=== PATIENT | male | born 1965 | race African-American/Black ===

== ENCOUNTER 2021-06-25 01:04 | Inpatient (IN) | payer OTHER ==
[2021-06-25 01:12] VITALS: BMI 26.9
[2021-06-25] MEDS ORDERED: ONDANSETRON *ODT* 4 MG TABLET SL PRN (01:26)
[2021-06-25] MEDS ORDERED: BISMUTH SUBSALICYLATE 524 MG/30 ML PO PRN (01:26)
[2021-06-25] MEDS ORDERED: IBUPROFEN 400 MG TABLET (FP) PO PRN (01:26)
[2021-06-25] MEDS ORDERED: ACETAMINOPHEN 325 MG TABLET (FP) PO PRN ×2 (01:26)
[2021-06-25] MEDS ORDERED: NICOTINE 10 MG CARTRIDGE (INHALER) IH PRN (01:26)
[2021-06-25] MEDS ORDERED: DICYCLOMINE HCL 10 MG CAPSULE PO PRN (01:26)
[2021-06-25] MEDS ORDERED: MAGNESIUM CITRATE 300 ML BOTTLE PO PRN (01:26)
[2021-06-25] MEDS ORDERED: LOPERAMIDE HCL 2 MG CAPSULE PO PRN (01:26)
[2021-06-25] MEDS ORDERED: BENZOCAINE/MENTHOL (CHLORASEPTIC ) LOZENGE MM PRN (01:26)
[2021-06-25] MEDS ORDERED: MAG HYDROX/AL HYDROX/SIMETH 30 ML UNIT-DOSE CUP PO PRN (01:26)
[2021-06-25] MEDS ORDERED: ALBUTEROL SO4 HFA INHALER IH PRN (03:19)
[2021-06-25] MEDS: hydrOXYzine PAMOATE 25 MG CAPSULE (FP) PO SCH ×5 (07:07→22:38)
[2021-06-25] MEDS ORDERED: diazePAM 5 MG TABLET PO PRN (09:55)
[2021-06-25] MEDS: METHOCARBAMOL 500 MG TABLET PO PRN (10:50)
[2021-06-25] MEDS: BACITRACIN 0.9 GM PACKET TP SCH (10:50)
[2021-06-25] MEDS: PRENATAL VITAMINS W/ FOLIC ACID TABLET (FP) PO SCH (10:50)
[2021-06-25] MEDS: diazePAM 5 MG TABLET PO SCH ×3 (10:50→22:39)
[2021-06-25] MEDS ORDERED: methaDONE HCL 10 MG TABLET PO ONE (12:22)
[2021-06-25] MEDS ORDERED: methaDONE HCL 10 MG TABLET ONE (13:49)
[2021-06-25] MEDS ORDERED: methaDONE HCL 40 MG DISPERSABLE TABLET ONE (13:49)
[2021-06-25] MEDS ORDERED: methaDONE 40 MG, methaDONE 10 MG PO ONE (14:00)
[2021-06-25 14:18] LABS: HEMATOCRIT 41.3 % (35.4-49); HEMOGLOBIN 13.9 GM/dL (11.7-16.9); MCH 28.2 pg (25.7-33.7); MCHC 33.8 g/dl (32.0-35.9); MEAN CELL VOLUME 83.4 fl (80-96); MEAN PLT VOLUME 8.3 fl (7.5-11.1); PLATELET COUNT 230 10^3/uL (134-434); RBC 4.95 M/mm3 (4.00-5.60); RDW 15.2 % (11.9-15.9); WHITE BLOOD COUNT 3.7 K/mm3 (4.0-10.0)
[2021-06-25 14:48] LABS: ALBUMIN 3.5 g/dl (3.4-5.0); CALCIUM 9.3 mg/dL (8.5-10.1)
[2021-06-25 14:49] LABS: BLOOD UREA NITROGEN 10.9 mg/dL (7-18)
[2021-06-25 14:51] LABS: CREATININE 0.9 mg/dL (0.55-1.3)
[2021-06-25 14:53] LABS: BILIRUBIN,TOTAL 0.7 mg/dL (0.2-1); TOT PROT 7.7 g/dl (6.4-8.2)
[2021-06-25 15:12] LABS: HIV INTERPRETATION NEGATIVE (NEGATIVE)
[2021-06-25] MEDS: MAGNESIUM HYDROX 2400MG/30ML ORAL SUSPENSION 30 ML CUP PO PRN (18:20)
[2021-06-25] MEDS: MELATONIN 5 MG TABLETS PO SCH (22:36)
[2021-06-25] MEDS: THIAMINE HCL 100 MG TABLET (FP) PO SCH (22:38)
[2021-06-26] MEDS ORDERED: diazePAM 5 MG TABLET PO PRN (00:01)
[2021-06-26] MEDS ORDERED: methaDONE HCL 40 MG DISPERSABLE TABLET ONE (04:08)
[2021-06-26] MEDS ORDERED: methaDONE HCL 10 MG TABLET ONE (04:08)
[2021-06-26] MEDS ORDERED: methaDONE HCL 10 MG TABLET PO SCH (06:00)
[2021-06-26 06:07] LABS: SARS-CoV-2 NAA Not Detected (Not Detected)
[2021-06-26] MEDS: diazePAM 5 MG TABLET PO SCH ×3 (06:41→22:36)
[2021-06-26] MEDS: methaDONE 40 MG, methaDONE 10 MG PO SCH (06:41)
[2021-06-26] MEDS: hydrOXYzine PAMOATE 25 MG CAPSULE (FP) PO SCH ×5 (06:42→22:36)
[2021-06-26] MEDS ORDERED: DOCUSATE SODIUM 100 MG CAPSULE (FP) PO ONE (10:20)
[2021-06-26] MEDS: METHOCARBAMOL 500 MG TABLET PO PRN (10:56)
[2021-06-26] MEDS: BACITRACIN 0.9 GM PACKET TP SCH (10:56)
[2021-06-26] MEDS: PRENATAL VITAMINS W/ FOLIC ACID TABLET (FP) PO SCH (10:56)
[2021-06-26] MEDS: DOCUSATE SODIUM 100 MG CAPSULE (FP) PO SCH ×2 (13:15→22:36)
[2021-06-26] MEDS: SENNOSIDES 8.6MG TABLET (FP) PO SCH (22:36)
[2021-06-26] MEDS: THIAMINE HCL 100 MG TABLET (FP) PO SCH (22:37)
[2021-06-26] MEDS: MELATONIN 5 MG TABLETS PO SCH (22:37)
[2021-06-27] MEDS ORDERED: methaDONE HCL 40 MG DISPERSABLE TABLET ONE (04:24)
[2021-06-27] MEDS ORDERED: methaDONE HCL 10 MG TABLET ONE (04:24)
[2021-06-27] MEDS: DOCUSATE SODIUM 100 MG CAPSULE (FP) PO SCH ×3 (05:53→22:32)
[2021-06-27] MEDS: hydrOXYzine PAMOATE 25 MG CAPSULE (FP) PO SCH ×5 (05:53→22:32)
[2021-06-27] MEDS: diazePAM 5 MG TABLET PO SCH ×2 (05:53→17:53)
[2021-06-27] MEDS: methaDONE 40 MG, methaDONE 10 MG PO SCH (05:53)
[2021-06-27] MEDS: MAGNESIUM HYDROX 2400MG/30ML ORAL SUSPENSION 30 ML CUP PO PRN (08:34)
[2021-06-27] MEDS: BACITRACIN 0.9 GM PACKET TP SCH (11:15)
[2021-06-27] MEDS: PRENATAL VITAMINS W/ FOLIC ACID TABLET (FP) PO SCH (11:15)
[2021-06-27] MEDS: SENNOSIDES 8.6MG TABLET (FP) PO SCH (22:31)
[2021-06-27] MEDS: THIAMINE HCL 100 MG TABLET (FP) PO SCH (22:32)
[2021-06-27] MEDS: MELATONIN 5 MG TABLETS PO SCH (22:32)
[2021-06-28] MEDS ORDERED: methaDONE HCL 40 MG DISPERSABLE TABLET ONE (03:54)
[2021-06-28] MEDS ORDERED: methaDONE HCL 10 MG TABLET ONE (03:54)
[2021-06-28] MEDS ORDERED: diazePAM 5 MG TABLET PO ONE (06:00)
[2021-06-28] MEDS: DOCUSATE SODIUM 100 MG CAPSULE (FP) PO SCH (06:36)
[2021-06-28] MEDS: hydrOXYzine PAMOATE 25 MG CAPSULE (FP) PO SCH ×2 (06:36→10:32)
[2021-06-28] MEDS: methaDONE 40 MG, methaDONE 10 MG PO SCH (06:36)
[2021-06-28] MEDS: PRENATAL VITAMINS W/ FOLIC ACID TABLET (FP) PO SCH (10:32)
[2021-06-28] MEDS: METHOCARBAMOL 500 MG TABLET PO PRN (10:32)
[2021-06-28] MEDS: BACITRACIN 0.9 GM PACKET TP SCH (10:32)
[2021-06-28 13:24] VITALS: BP 122/78; PULSE 72; TEMP 98.3
== END 2021-06-28 13:51 | disposition other institution (70) | DRG 773 ==
LOC: YASAS 01:04 → Y6N 02:01
PROVIDERS: ADMIT Allergy & Immunology; ATTEND Allergy & Immunology
PROC: HZ2ZZZZ Detoxification Services for Substance Abuse Treatment (ICD-10-PCS; principal; 2021-06-25)
DX: F13.230 Sedative, hypnotic or anxiolytic dependence with withdrawal, uncomplicated (principal); F11.20 Opioid dependence, uncomplicated; F17.210 Nicotine dependence, cigarettes, uncomplicated; F19.282 Other psychoactive substance dependence with psychoactive substance-induced sleep disorder; F19.24 Other psychoactive substance dependence with psychoactive substance-induced mood disorder; E11.9 Type 2 diabetes mellitus without complications; J45.909 Unspecified asthma, uncomplicated; K59.03 Drug induced constipation; L97.321 Non-pressure chronic ulcer of left ankle limited to breakdown of skin; Z88.0 Allergy status to penicillin; Z59.00 Homelessness unspecified
CPT/HCPCS: 36415; 73610-TC-LT-FY; 73630-TC-LT; 80053; 85025; 85027; 86780; 87389; 99283-25; C9803-CS; U0003; U0005

== ENCOUNTER 2021-06-28 14:08 | Inpatient (IN) | payer OTHER ==
[2021-06-28] MEDS ORDERED: MAGNESIUM CITRATE 300 ML BOTTLE PO PRN (15:16)
[2021-06-28] MEDS ORDERED: guaiFENesin 200 MG/10 ML 10 ML UNIT-DOSE CUPS PO PRN (15:16)
[2021-06-28] MEDS ORDERED: ACETAMINOPHEN 325 MG TABLET (FP) PO PRN (15:16)
[2021-06-28] MEDS ORDERED: MAGNESIUM HYDROX 2400MG/30ML ORAL SUSPENSION 30 ML CUP PO PRN (15:16)
[2021-06-28] MEDS ORDERED: LOPERAMIDE HCL 2 MG CAPSULE PO PRN (15:16)
[2021-06-28] MEDS ORDERED: P-EPHED 60MG/TRIPROLIDI 2.5MG TABLET PO PRN (15:16)
[2021-06-28] MEDS ORDERED: IBUPROFEN 400 MG TABLET (FP) PO PRN (15:16)
[2021-06-28] MEDS ORDERED: BENZOCAINE/MENTHOL (CHLORASEPTIC ) LOZENGE MM PRN (15:16)
[2021-06-28] MEDS ORDERED: MAG HYDROX/AL HYDROX/SIMETH 30 ML UNIT-DOSE CUP PO PRN (15:16)
[2021-06-28] MEDS ORDERED: ALBUTEROL SO4 HFA INHALER IH PRN (15:17)
[2021-06-28] MEDS: hydrOXYzine PAMOATE 25 MG CAPSULE (FP) PO SCH ×2 (20:45→21:11)
[2021-06-28] MEDS: MELATONIN 5 MG TABLETS PO SCH (21:11)
[2021-06-28] MEDS: THIAMINE HCL 100 MG TABLET (FP) PO SCH (21:11)
[2021-06-29] MEDS ORDERED: methaDONE HCL 10 MG TABLET ONE (04:08)
[2021-06-29] MEDS ORDERED: methaDONE HCL 40 MG DISPERSABLE TABLET ONE (04:08)
[2021-06-29] MEDS ORDERED: methaDONE HCL 10 MG TABLET PO SCH (06:00)
[2021-06-29] MEDS: methaDONE 40 MG, methaDONE 10 MG PO SCH (06:40)
[2021-06-29] MEDS: hydrOXYzine PAMOATE 25 MG CAPSULE (FP) PO SCH ×5 (06:41→21:24)
[2021-06-29] MEDS: PRENATAL VITAMINS W/ FOLIC ACID TABLET (FP) PO SCH (10:36)
[2021-06-29] MEDS: THIAMINE HCL 100 MG TABLET (FP) PO SCH (21:24)
[2021-06-29] MEDS: MELATONIN 5 MG TABLETS PO SCH (21:24)
[2021-06-30] MEDS ORDERED: methaDONE HCL 40 MG DISPERSABLE TABLET ONE (05:27)
[2021-06-30] MEDS ORDERED: methaDONE HCL 10 MG TABLET ONE (05:27)
[2021-06-30] MEDS: hydrOXYzine PAMOATE 25 MG CAPSULE (FP) PO SCH ×5 (06:45→21:14)
[2021-06-30] MEDS: methaDONE 40 MG, methaDONE 10 MG PO SCH (06:45)
[2021-06-30] MEDS: PRENATAL VITAMINS W/ FOLIC ACID TABLET (FP) PO SCH (10:38)
[2021-06-30] MEDS: THIAMINE HCL 100 MG TABLET (FP) PO SCH (21:14)
[2021-06-30] MEDS: MELATONIN 5 MG TABLETS PO SCH (21:14)
[2021-07-01] MEDS ORDERED: methaDONE HCL 10 MG TABLET ONE (04:13)
[2021-07-01] MEDS ORDERED: methaDONE HCL 40 MG DISPERSABLE TABLET ONE (04:14)
[2021-07-01] MEDS: methaDONE 40 MG, methaDONE 10 MG PO SCH (06:21)
[2021-07-01] MEDS: hydrOXYzine PAMOATE 25 MG CAPSULE (FP) PO SCH ×5 (06:21→21:23)
[2021-07-01] MEDS: PRENATAL VITAMINS W/ FOLIC ACID TABLET (FP) PO SCH (10:10)
[2021-07-01] MEDS: MUPIROCIN 2% TOPICAL OINTMENT 22 GM TUBE TP SCH ×2 (12:11→21:24)
[2021-07-01] MEDS: SULFAMETHOXAZOLE/TRIMETHOPRIM 800MG/160MG D.S. TABLET PO SCH ×2 (12:11→21:23)
[2021-07-01] MEDS: METHOCARBAMOL 500 MG TABLET PO SCH ×3 (14:40→21:23)
[2021-07-01] MEDS: MELATONIN 5 MG TABLETS PO SCH (21:23)
[2021-07-01] MEDS: THIAMINE HCL 100 MG TABLET (FP) PO SCH (21:23)
[2021-07-02] MEDS ORDERED: methaDONE HCL 40 MG DISPERSABLE TABLET ONE (04:32)
[2021-07-02] MEDS ORDERED: methaDONE HCL 10 MG TABLET ONE (04:32)
[2021-07-02] MEDS: hydrOXYzine PAMOATE 25 MG CAPSULE (FP) PO SCH ×5 (06:14→21:34)
[2021-07-02] MEDS: methaDONE 40 MG, methaDONE 10 MG PO SCH (06:14)
[2021-07-02 10:09] LABS: SARS-CoV-2 NAA Not Detected (Not Detected)
[2021-07-02] MEDS: SULFAMETHOXAZOLE/TRIMETHOPRIM 800MG/160MG D.S. TABLET PO SCH ×2 (10:28→21:35)
[2021-07-02] MEDS: MUPIROCIN 2% TOPICAL OINTMENT 22 GM TUBE TP SCH ×2 (10:28→21:35)
[2021-07-02] MEDS: METHOCARBAMOL 500 MG TABLET PO SCH ×4 (10:29→21:34)
[2021-07-02] MEDS: PRENATAL VITAMINS W/ FOLIC ACID TABLET (FP) PO SCH (10:29)
[2021-07-02] MEDS: MELATONIN 5 MG TABLETS PO SCH (21:34)
[2021-07-02] MEDS: THIAMINE HCL 100 MG TABLET (FP) PO SCH (21:34)
[2021-07-03] MEDS ORDERED: methaDONE HCL 10 MG TABLET ONE (04:11)
[2021-07-03] MEDS ORDERED: methaDONE HCL 40 MG DISPERSABLE TABLET ONE (04:11)
[2021-07-03] MEDS: methaDONE 40 MG, methaDONE 10 MG PO SCH (06:21)
[2021-07-03] MEDS: hydrOXYzine PAMOATE 25 MG CAPSULE (FP) PO SCH ×5 (06:22→21:15)
[2021-07-03] MEDS: PRENATAL VITAMINS W/ FOLIC ACID TABLET (FP) PO SCH (10:17)
[2021-07-03] MEDS: SULFAMETHOXAZOLE/TRIMETHOPRIM 800MG/160MG D.S. TABLET PO SCH ×2 (10:17→21:15)
[2021-07-03] MEDS: METHOCARBAMOL 500 MG TABLET PO SCH ×4 (10:17→21:15)
[2021-07-03] MEDS: MUPIROCIN 2% TOPICAL OINTMENT 22 GM TUBE TP SCH ×2 (10:17→21:16)
[2021-07-03] MEDS: THIAMINE HCL 100 MG TABLET (FP) PO SCH (21:15)
[2021-07-03] MEDS: MELATONIN 5 MG TABLETS PO SCH (21:15)
[2021-07-04] MEDS ORDERED: methaDONE HCL 40 MG DISPERSABLE TABLET ONE (02:48)
[2021-07-04] MEDS ORDERED: methaDONE HCL 10 MG TABLET ONE (02:48)
[2021-07-04] MEDS: methaDONE 40 MG, methaDONE 10 MG PO SCH (06:14)
[2021-07-04] MEDS: hydrOXYzine PAMOATE 25 MG CAPSULE (FP) PO SCH ×5 (06:16→23:03)
[2021-07-04] MEDS: MUPIROCIN 2% TOPICAL OINTMENT 22 GM TUBE TP SCH ×2 (09:52→21:29)
[2021-07-04] MEDS: SULFAMETHOXAZOLE/TRIMETHOPRIM 800MG/160MG D.S. TABLET PO SCH ×2 (09:52→21:28)
[2021-07-04] MEDS: METHOCARBAMOL 500 MG TABLET PO SCH ×4 (09:52→21:28)
[2021-07-04] MEDS: PRENATAL VITAMINS W/ FOLIC ACID TABLET (FP) PO SCH (09:52)
[2021-07-04] MEDS: MELATONIN 5 MG TABLETS PO SCH (21:28)
[2021-07-04] MEDS: THIAMINE HCL 100 MG TABLET (FP) PO SCH (21:28)
[2021-07-04] MEDS: DOCUSATE SODIUM 100 MG CAPSULE (FP) PO SCH (21:29)
[2021-07-05] MEDS ORDERED: methaDONE HCL 40 MG DISPERSABLE TABLET ONE (05:26)
[2021-07-05] MEDS ORDERED: methaDONE HCL 10 MG TABLET ONE (05:26)
[2021-07-05] MEDS: methaDONE 40 MG, methaDONE 10 MG PO SCH (06:35)
[2021-07-05] MEDS: hydrOXYzine PAMOATE 25 MG CAPSULE (FP) PO SCH ×2 (06:36→10:03)
[2021-07-05] MEDS: MUPIROCIN 2% TOPICAL OINTMENT 22 GM TUBE TP SCH ×2 (10:02→21:42)
[2021-07-05] MEDS: SULFAMETHOXAZOLE/TRIMETHOPRIM 800MG/160MG D.S. TABLET PO SCH ×2 (10:03→21:41)
[2021-07-05] MEDS: PRENATAL VITAMINS W/ FOLIC ACID TABLET (FP) PO SCH (10:03)
[2021-07-05] MEDS: METHOCARBAMOL 500 MG TABLET PO SCH ×4 (10:03→22:20)
[2021-07-05] MEDS ORDERED: hydrOXYzine PAMOATE 25 MG CAPSULE (FP) PO PRN (12:39)
[2021-07-05] MEDS: MELATONIN 5 MG TABLETS PO SCH (21:40)
[2021-07-05] MEDS: THIAMINE HCL 100 MG TABLET (FP) PO SCH (21:40)
[2021-07-05] MEDS: DOCUSATE SODIUM 100 MG CAPSULE (FP) PO SCH (21:41)
[2021-07-06] MEDS ORDERED: methaDONE HCL 40 MG DISPERSABLE TABLET ONE (04:04)
[2021-07-06] MEDS ORDERED: methaDONE HCL 10 MG TABLET ONE (04:04)
[2021-07-06] MEDS: methaDONE 40 MG, methaDONE 10 MG PO SCH (05:58)
[2021-07-06] MEDS: PRENATAL VITAMINS W/ FOLIC ACID TABLET (FP) PO SCH (10:23)
[2021-07-06] MEDS: MUPIROCIN 2% TOPICAL OINTMENT 22 GM TUBE TP SCH ×2 (10:23→21:16)
[2021-07-06] MEDS: METHOCARBAMOL 500 MG TABLET PO SCH ×4 (10:23→21:15)
[2021-07-06] MEDS: SULFAMETHOXAZOLE/TRIMETHOPRIM 800MG/160MG D.S. TABLET PO SCH ×2 (10:23→21:15)
[2021-07-06] MEDS: DOCUSATE SODIUM 100 MG CAPSULE (FP) PO SCH (21:15)
[2021-07-06] MEDS: MELATONIN 5 MG TABLETS PO SCH (21:16)
[2021-07-06] MEDS: THIAMINE HCL 100 MG TABLET (FP) PO SCH (21:16)
[2021-07-07] MEDS ORDERED: methaDONE HCL 10 MG TABLET ONE (02:12)
[2021-07-07] MEDS ORDERED: methaDONE HCL 40 MG DISPERSABLE TABLET ONE (02:12)
[2021-07-07] MEDS: methaDONE 40 MG, methaDONE 10 MG PO SCH (06:27)
[2021-07-07] MEDS: METHOCARBAMOL 500 MG TABLET PO SCH ×4 (10:17→21:27)
[2021-07-07] MEDS: MUPIROCIN 2% TOPICAL OINTMENT 22 GM TUBE TP SCH ×2 (10:17→21:28)
[2021-07-07] MEDS: SULFAMETHOXAZOLE/TRIMETHOPRIM 800MG/160MG D.S. TABLET PO SCH ×2 (10:17→21:27)
[2021-07-07] MEDS: PRENATAL VITAMINS W/ FOLIC ACID TABLET (FP) PO SCH (10:17)
[2021-07-07] MEDS: THIAMINE HCL 100 MG TABLET (FP) PO SCH (21:27)
[2021-07-07] MEDS: MELATONIN 5 MG TABLETS PO SCH (21:27)
[2021-07-07] MEDS: DOCUSATE SODIUM 100 MG CAPSULE (FP) PO SCH (21:27)
[2021-07-08] MEDS ORDERED: methaDONE HCL 40 MG DISPERSABLE TABLET ONE (02:10)
[2021-07-08] MEDS ORDERED: methaDONE HCL 10 MG TABLET ONE (02:10)
[2021-07-08] MEDS: methaDONE 40 MG, methaDONE 10 MG PO SCH (06:08)
[2021-07-08] MEDS: PRENATAL VITAMINS W/ FOLIC ACID TABLET (FP) PO SCH (10:23)
[2021-07-08] MEDS: SULFAMETHOXAZOLE/TRIMETHOPRIM 800MG/160MG D.S. TABLET PO SCH (10:23)
[2021-07-08] MEDS: METHOCARBAMOL 500 MG TABLET PO SCH ×4 (10:23→21:15)
[2021-07-08] MEDS: MUPIROCIN 2% TOPICAL OINTMENT 22 GM TUBE TP SCH ×2 (13:14→21:15)
[2021-07-08] MEDS: DOCUSATE SODIUM 100 MG CAPSULE (FP) PO SCH (21:14)
[2021-07-08] MEDS: MELATONIN 5 MG TABLETS PO SCH (21:15)
[2021-07-08] MEDS: THIAMINE HCL 100 MG TABLET (FP) PO SCH (21:15)
[2021-07-09] MEDS ORDERED: methaDONE HCL 10 MG TABLET ONE (04:52)
[2021-07-09] MEDS ORDERED: methaDONE HCL 40 MG DISPERSABLE TABLET ONE (04:52)
[2021-07-09] MEDS: methaDONE 40 MG, methaDONE 10 MG PO SCH (06:16)
[2021-07-09] MEDS: PRENATAL VITAMINS W/ FOLIC ACID TABLET (FP) PO SCH (09:50)
[2021-07-09] MEDS: MUPIROCIN 2% TOPICAL OINTMENT 22 GM TUBE TP SCH ×2 (09:50→21:22)
[2021-07-09] MEDS: METHOCARBAMOL 500 MG TABLET PO SCH ×4 (09:50→21:21)
[2021-07-09] MEDS: SULFAMETHOXAZOLE/TRIMETHOPRIM 800MG/160MG D.S. TABLET PO SCH ×2 (10:33→21:21)
[2021-07-09] MEDS: BACITRACIN 0.9 GM PACKET TP SCH ×2 (10:33→21:21)
[2021-07-09] MEDS: THIAMINE HCL 100 MG TABLET (FP) PO SCH (21:21)
[2021-07-09] MEDS: DOCUSATE SODIUM 100 MG CAPSULE (FP) PO SCH (21:21)
[2021-07-09] MEDS: MELATONIN 5 MG TABLETS PO SCH (21:21)
[2021-07-10] MEDS ORDERED: methaDONE HCL 10 MG TABLET ONE (02:43)
[2021-07-10] MEDS ORDERED: methaDONE HCL 40 MG DISPERSABLE TABLET ONE (02:43)
[2021-07-10] MEDS: methaDONE 40 MG, methaDONE 10 MG PO SCH (06:00)
[2021-07-10] MEDS: BACITRACIN 0.9 GM PACKET TP SCH ×2 (11:16→21:10)
[2021-07-10] MEDS: METHOCARBAMOL 500 MG TABLET PO SCH ×4 (11:17→21:10)
[2021-07-10] MEDS: PRENATAL VITAMINS W/ FOLIC ACID TABLET (FP) PO SCH (11:17)
[2021-07-10] MEDS: SULFAMETHOXAZOLE/TRIMETHOPRIM 800MG/160MG D.S. TABLET PO SCH ×2 (11:17→21:10)
[2021-07-10] MEDS: MUPIROCIN 2% TOPICAL OINTMENT 22 GM TUBE TP SCH ×2 (11:17→21:11)
[2021-07-10] MEDS: DOCUSATE SODIUM 100 MG CAPSULE (FP) PO SCH (21:10)
[2021-07-10] MEDS: THIAMINE HCL 100 MG TABLET (FP) PO SCH (21:10)
[2021-07-10] MEDS: MELATONIN 5 MG TABLETS PO SCH (21:10)
[2021-07-11] MEDS ORDERED: methaDONE HCL 10 MG TABLET ONE (06:00)
[2021-07-11] MEDS ORDERED: methaDONE HCL 40 MG DISPERSABLE TABLET ONE (06:00)
[2021-07-11] MEDS: methaDONE 40 MG, methaDONE 10 MG PO SCH (06:42)
[2021-07-11] MEDS: BACITRACIN 0.9 GM PACKET TP SCH ×2 (10:07→21:40)
[2021-07-11] MEDS: METHOCARBAMOL 500 MG TABLET PO SCH ×4 (10:07→21:39)
[2021-07-11] MEDS: PRENATAL VITAMINS W/ FOLIC ACID TABLET (FP) PO SCH (10:07)
[2021-07-11] MEDS: SULFAMETHOXAZOLE/TRIMETHOPRIM 800MG/160MG D.S. TABLET PO SCH ×2 (10:07→21:39)
[2021-07-11] MEDS: MUPIROCIN 2% TOPICAL OINTMENT 22 GM TUBE TP SCH ×2 (10:07→21:40)
[2021-07-11] MEDS: DOCUSATE SODIUM 100 MG CAPSULE (FP) PO SCH ×2 (13:44→21:39)
[2021-07-11] MEDS: THIAMINE HCL 100 MG TABLET (FP) PO SCH (21:38)
[2021-07-11] MEDS: MELATONIN 5 MG TABLETS PO SCH (21:38)
[2021-07-12] MEDS ORDERED: methaDONE HCL 10 MG TABLET ONE (04:18)
[2021-07-12] MEDS ORDERED: methaDONE HCL 40 MG DISPERSABLE TABLET ONE (04:18)
[2021-07-12] MEDS ORDERED: methaDONE 40 MG, methaDONE 10 MG PO SCH (06:00)
[2021-07-12] MEDS: DOCUSATE SODIUM 100 MG CAPSULE (FP) PO SCH (06:10)
[2021-07-12 07:06] VITALS: BP 157/87; PULSE 75; TEMP 97.6
[2021-07-12] MEDS: PRENATAL VITAMINS W/ FOLIC ACID TABLET (FP) PO SCH (09:22)
[2021-07-12] MEDS: BACITRACIN 0.9 GM PACKET TP SCH (09:22)
[2021-07-12] MEDS: SULFAMETHOXAZOLE/TRIMETHOPRIM 800MG/160MG D.S. TABLET PO SCH (09:22)
[2021-07-12] MEDS: METHOCARBAMOL 500 MG TABLET PO SCH (09:22)
[2021-07-12] MEDS: MUPIROCIN 2% TOPICAL OINTMENT 22 GM TUBE TP SCH (11:11)
== END 2021-07-12 10:24 | disposition home or self-care (01) | DRG 772 ==
LOC: YASAS 14:08 → Y3W 14:09
PROVIDERS: ADMIT Allergy & Immunology; ATTEND Allergy & Immunology
PROC: HZ42ZZZ Group Counseling for Substance Abuse Treatment, Cognitive-Behavioral (ICD-10-PCS; principal; 2021-06-28)
DX: F13.20 Sedative, hypnotic or anxiolytic dependence, uncomplicated (principal); F11.20 Opioid dependence, uncomplicated; J45.909 Unspecified asthma, uncomplicated; I87.2 Venous insufficiency (chronic) (peripheral); L81.8 Other specified disorders of pigmentation; Z88.0 Allergy status to penicillin; Z91.010 Allergy to peanuts; Z91.018 Allergy to other foods; Z59.00 Homelessness unspecified
CPT/HCPCS: 73590-TC-LT-FY; 82962; C9803-CS; U0003; U0005